=== PATIENT | female | born 1965 | race Caucasian/White ===

== ENCOUNTER 2019-07-01 17:37 | Emergency (ER) | payer SELFPAY ==
[2019-07-01] MEDS ORDERED: IBUPROFEN 600 MG TABLET PO ONE (17:58)
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
== END 2019-07-01 19:01 | disposition home or self-care (01) ==
LOC: ER 17:37
DX: S90.31XA Contusion of right foot, initial encounter (principal); V43.52XA Car driver injured in collision with other type car in traffic accident, initial encounter; Y92.89 Other specified places as the place of occurrence of the external cause
CPT/HCPCS: 99283